=== PATIENT | female | born 1980 | race Caucasian/White ===

== ENCOUNTER → 2019-10-25 | Day surgery (SDC) | payer MEDICAID ==
[2019-10-23 19:13] LABS: BASOPHIL % 0.6 % (0-2); PLATELET COUNT 356 x10^3mcL (130-400)
[2019-10-23 19:23] LABS: RED CELL DISTRIBUTION WIDTH 16.4 % (11.5-14.5)
[2019-10-23 19:33] LABS: ALKALINE PHOSPHATASE 75 U/L (46-116); ALT/SGPT 89 U/L (14-59); AST/SGOT 41 U/L (15-37); CALCIUM 8.7 mg/dL (8.5-10.1); CARBON DIOXIDE 27.8 mmol/L (21-32); CHLORIDE SERUM 103 mmol/L (98-107); CREATININE SERUM 0.8 mg/dL (0.6-1.0); GFR1 > 60 mL/min; GLUCOSE SERUM 91 mg/dL (74-106); SODIUM SERUM 139 mmol/L (136-145)
[2019-10-23 20:33] LABS: microscopic required? NO
[2019-10-23 20:49] LABS: UA SPECIFIC GRAVITY >=1.030 (1.005-1.035); urine erythrocyte NEGATIVE (NEGATIVE)
--- NOTE | 2019-10-24 10:35 | NUR ---
COPY OF LAB RESULT WAS FAXED TO DR. PROCTOR'S OFFICE AND SENT TO ANESTHESIOLOGIST FOR REVIEW. DR. CAMPBELL, ANESTHESIOLOGIST DID NOT HAVE ANY NEW RECOMMENDATION.
[~2019-10-25] VITALS: Ht 144.8 cm; Wt 77.1 kg
[2019-10-25 07:42] VITALS: BP 111/68
== END | disposition home or self-care (01) ==
LOC: DS 06:06 → EDSTATUS 07:30 → MU 07:30
PROVIDERS: ATTEND Obstetrics & Gynecology
DX: N95.0 Postmenopausal bleeding (principal); Z11.59 Encounter for screening for other viral diseases; Z53.8 Procedure and treatment not carried out for other reasons
CPT/HCPCS: J2175; J2250; J3010; U0003-CS